=== PATIENT | male | born 1985 | race African-American/Black ===

== ENCOUNTER 2016-09-18 09:55 | Emergency (ER) | payer OTHER ==
[2016-09-18 09:58] VITALS: BP 160/90; PULSE 68; RESP 14; TEMP 97.8; O2SAT 99
[2016-09-18] MEDS ORDERED: RALT400 PO ×2 (14:06→16:32)
[2016-09-18] MEDS ORDERED: EMTR1TAB PO ×2 (14:06→16:32)
== END 2016-09-18 10:11 | disposition left against medical advice (07) ==
LOC: NED 09:55
DX: R68.89 Other general symptoms and signs (principal)
CPT/HCPCS: 99281

== ENCOUNTER → 2016-09-18 | Outpatient (CLI) | payer OTHER ==
[~2016-09-18] MED LIST: EMTR1TAB PO; RALT400 PO
[2016-09-18 14:13] LABS: CHLAMYDIA PCR NOT DETECTED (NOT DETECT); NEISSERIA PCR NOT DETECTED (NOT DETECT)
== END ==
LOC: CLAB 11:42
PROVIDERS: ATTEND Nurse Practitioner Family
DX: Z11.3 Encounter for screening for infections with a predominantly sexual mode of transmission (principal)
CPT/HCPCS: 36415; 86703; 87491; 87591